=== PATIENT | female | born 1945 | race African-American/Black ===

== ENCOUNTER 2020-03-22 10:57 | Emergency (ER) | payer OTHER, SELFPAY ==
--- NOTE | ~2020-03-22 | XR_ITS ---
EXAMINATION: XR chest 2V EXAM DATE: 03/22/2020 11:53 INDICATION: Shortness of breath. Nonproductive cough. TECHNIQUE: Frontal and lateral projections of the chest obtained and reviewed. Comparison is made to prior examination from 07/05/2013. FINDINGS: Chronic left hemidiaphragm elevation, is higher than on prior study with adjacent atelecta sis. Could indicate hemidiaphragm paresis. The lungs are otherwise clear. There are no pleural effus ions. The cardiomediastinal silhouette is within normal limits. There is no pneumothorax suspected. The bones and soft tissues are unremarkable. IMPRESSION: Chronic left hemidiaphragm elevation, adjacent atelectasis. Possible hemidiaphragm paraly sis. Reviewed, dictated and finalized at location B. IMPRESSION: Chronic left hemidiaphragm elevation, adjacent atelectasis. Possibl e hemidiaphragm paralysis.
[2020-03-22 11:08] VITALS: BP 135/76; PULSE 93; RESP 16; TEMP 36.7; O2SAT 98
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
--- NOTE | 2020-03-22 11:21 | ECG_ITS ---
Measurements Intervals [place] Rate: 88 P: 64 AR: 195 QRS: -9 QRSD: 111 T: 69 QT: 368 QTc: 446 Interpretive Statements SINUS RHYTHM INTRAVENTRICULAR CONDUCTION DELAY EARLY PRECORDIAL R/S TRANSITION NONSPECIFIC T-WAVE ABNORMALITY- HIGH LATERAL LEADS BORDERLINE ECG Electronically Signed On 03-22-2020 19:42:37 CDT by Isra Brower D.O.
[2020-03-22 11:35] VITALS: BP 135/64; PULSE 87
[2020-03-22 11:36] LABS: Glucose Point of Care 117 (65-105)
[2020-03-22 11:37] VITALS: BP 136/72; PULSE 91
[2020-03-22 11:39] VITALS: BP 150/78; PULSE 96
--- NOTE | 2020-03-22 11:52 | PC.NURSE ---
xray completed and back in rm.
== END 2020-03-22 12:10 | disposition home or self-care (01) ==
PROVIDERS: Emergency Provider Nurse Practitioner Family; PCP Family Medicine Adolescent Medicine
DX: R42 Dizziness and giddiness (principal); R55 Syncope and collapse; F17.210 Nicotine dependence, cigarettes, uncomplicated; I11.0 Hypertensive heart disease with heart failure; I50.9 Heart failure, unspecified; E78.00 Pure hypercholesterolemia, unspecified; E66.9 Obesity, unspecified
CPT/HCPCS: 71046; 82948; 93005; 99213; G0463